=== PATIENT | female | born 1985 | race Caucasian/White ===

== ENCOUNTER → 2018-12-24 | Outpatient (CLI) | payer OTHER ==
--- NOTE | 2018-12-24 16:27 | Diagnostic Imaging Report ---
INDICATION: Increasing right knee pain. TIME OF EXAM: 11:09 a.m. COMPARISON: No prior studies are available for comparison. FINDINGS: There are significant tricompartmental degenerative changes with joint space narrowing and marginal spurring, most significant involving the medial and patellofemoral compartments. No fractures are identified. There is some suprapatellar fullness present suggestive of a joint effusion. IMPRESSION: Significant degenerative changes and joint effusion. No acute bony abnormality is detected. Dictated by: Dictated on workstation # [id number]
== END ==
LOC: RAD FS 11:05
PROVIDERS: ATTEND Nurse Practitioner
DX: M17.11 Unilateral primary osteoarthritis, right knee (principal)
CPT/HCPCS: 73562